=== PATIENT | male | born 1970 | race Caucasian/White ===

== ENCOUNTER 2016-07-11 21:26 | Emergency (ER) | payer MEDICAID ==
[~2016-07-11] VITALS: Ht 348 cm; Wt 61.0 kg
[~2016-07-11 21:26] MED LIST: AMOX1TAB9 PO; IBUP800T25 PO
[2016-07-11 21:38] VITALS: Ht 348 cm; Wt 61.0 kg
--- NOTE | 2016-07-11 23:36 | ERA ---
ER Documentation Chief Complaint Date/Time DATE: 07/11/16 TIME: 23:35 Chief Complaint states broken tooth/neck pain for a few months HPI The patient is a 46-year-old male, presenting to the ER because of left broken lower molar for 1 day. He has an appointment with a dentist next week. He has presented to the ER previously for similar symptoms. He denies any trauma, fever, chills, neck pain, chest pain, abdominal pain, vomiting with dysuria, diarrhea. He smokes, denies drinking or using illicit drug Past medical/surgical history: none ROS All systems reviewed and are negative except as per history of present illness. Medications Home Meds Active Scripts Ibuprofen* (Motrin*) 600 Mg Tab, 600 MG PO Q6H Y for PAIN AND OR ELEVATED TEMP, #30 TAB Prov:YOUNG LIMON MD 07/12/16 Amoxicillin* (Amoxicillin*) 500 Mg Cap, 500 MG PO Q8, #30 CAP Prov:YOUNG LIMON MD 07/12/16 Ibuprofen* (Motrin*) 800 Mg Tab, 800 MG PO Q6, #30 TAB Prov:ELEONORA HE PA-C 12/03/15 Amoxicillin/Potassium Clav (Amox-Clav 500-125 mg Tablet) 500-125 mg Tab, 1 TAB PO BID for 10 Days, TAB Prov:ELEONORA HE PA-C 12/03/15 Allergies Allergies: Coded Allergies: No Known Allergy (Unverified , 07/11/16) PMhx/Soc Hx Alcohol Use: Yes Hx Substance Use: No Hx Tobacco Use: No Physical Exam Vitals Vital Signs Date Time Temp Pulse Resp B/P Pulse Ox O2 Delivery O2 Flow Rate FiO2 07/11/16 21:38 98.4 85 20 129/89 98 Physical Exam Const: No acute distress. Head: Atraumatic. Eyes: Normal Conjunctiva. ENT: Normal External Ears, Nose and Mouth. Left lower molar is decayed with erythematous gum Neck: Full range of motion. No meningismus. Resp: Clear to auscultation bilaterally. Cardio: Regular rate and rhythm, no murmurs. Abd: Soft, non distended, normal bowel sounds, non tender. Skin: No petechiae or rashes. Back: No midline or flank tenderness. Ext: No cyanosis, or edema. Neur: Awake and alert. No focal deficit Psych: Normal Mood and Affect. Results 24 hrs Current Medications Medications (Trade) Dose Ordered Sig/Abiodun Route PRN Reason Start Time Stop Time Status Last Admin Dose Admin Amoxicillin (Amoxicillin) 500 mg ONCE ONCE PO 07/12/16 00:30 07/12/16 00:31 DC 07/12/16 00:41 Ibuprofen (Motrin) 600 mg ONCE ONCE PO 07/12/16 00:30 07/12/16 00:31 DC 07/12/16 00:41 Procedures/MDM The patient is a 46-year-old male, presenting with acute dental pain. He was treated with amoxicillin and Motrin Departure Diagnosis: Primary Impression: Pain, dental Condition: Good Comments He was discharged with amoxicillin and Motrin and advised to see the dentist in the morning The patient's blood pressure was elevated (>120/80) but appears stable without evidence of hypertension emergency or urgency. The patient was counseled about the risks of hypertension and urged to pursue outpatient monitoring and therapy within a week with their primary care physician. YOUNG LIMON MD Jul 11, 2016 23:36
[2016-07-12] MEDS ORDERED: IBUP-1542 PO (00:16)
[2016-07-12] MEDS ORDERED: AMO500 PO (00:16)
[2016-07-12] MEDS ORDERED: IBUPROFEN 600 MG TAB PO ONE (00:30)
[2016-07-12] MEDS ORDERED: AMOXICILLIN 500 MG CAP PO ONE (00:30)
== END 2016-07-12 01:01 | disposition home or self-care (01) ==
LOC: FTE 21:26
DX: K08.89 Other specified disorders of teeth and supporting structures (principal)
CPT/HCPCS: Z7502; Z7610; 99283